=== PATIENT | male | born 1980 | race Caucasian/White ===

== ENCOUNTER 2019-03-27 18:31 | Emergency (ER) | payer OTHER ==
[~2019-03-27] VITALS: Ht 172.7 cm; Wt 81.7 kg
[2019-03-27 18:59] LABS: ABSOLUTE NEUTROPHILS 4.2 thou/uL (1.4-8.2); EOSINOPHILS 0.7 % (0.0-3.0); HEMATOCRIT 43.8 % (42.0-52.0); HEMOGLOBIN 15.1 gm/dL (14.0-18.0); LYMPHOCYTES 23.3 % (24.0-44.0); MCH 31.2 pg (26.0-34.0); MCHC 34.6 g/dL (28.0-37.0); MCV 90.2 fL (80.0-100.0); PLATELET COUNT 177 thou/uL (150-400); RBC 4.85 mil/uL (4.50-6.00); RDW 13.2 % (10.5-14.5); WBC 6.4 thou/uL (4.0-11.0)
[2019-03-27 19:10] LABS: ANION GAP 16 mmol/L (7-16); BUN 11 mg/dL (7-18); CALCIUM 9.2 mg/dL (8.5-10.1); CHLORIDE 101 mmol/L (98-107); CO2 23 mmol/L (21-32); CREATININE 1.3 mg/dL (0.7-1.3); GLUCOSE 212 mg/dL (74-106); SODIUM 140 mmol/L (136-145)
[2019-03-27 19:16] LABS: TROPONIN-I <0.06 ng/mL (<0.06)
[2019-03-27 21:15] VITALS: BP 147/82
--- NOTE | 2019-03-28 08:15 | EKG ---
[address] [address] ELECTROCARDIOGRAM REPORT Name: NA NELSON Room #: DEP [facility] ROS[facility] [id number] ������������������ Admission: 03/27/19 ������������������ Attend Phys: Discharge: 03/27/19 ������������������ Date of : 84 Report #: [id number] ����������������������������������������������������������������� [id number] THIS REPORT FOR: //name// [facility] ED Test Date: 2019-03-27 Test Time: 18:51:15 Pat Name: NA NELSON Department: Room: Gender: M Compensation Agent: jlambertz : 1980 Requested By: Miah Muniz Order Number: [id number] MD: Dm Kerns Measurements Intervals [place] Rate: 86 P: 45 LA: 171 QRS: 19 QRSD: 116 T: 34 QT: 374 QTc: 448 Interpretive Statements Sinus rhythm Nonspecific intraventricular conduction delay No previous ECG available for comparison Electronically Signed On 03-28-2019 8:15:15 CDT by Dm Kerns [email or web address] ��������������������������������������������� <ELECTRONICALLY SIGNED> ���������������������������������������� By: Dm Kerns MD, [facility] ��������������������������������������������� 03/28/19 0815 [id number] 185 Dm Kerns MD, FACC /EPI
== END 2019-03-27 21:17 | disposition home or self-care (01) ==
LOC: ER 18:31
PROVIDERS: Emergency Medicine
DX: T40.2X1A Poisoning by other opioids, accidental (unintentional), initial encounter (principal); Y92.89 Other specified places as the place of occurrence of the external cause